=== PATIENT | female | born 1965 | race Caucasian/White ===

== ENCOUNTER 2017-09-02 19:10 | Emergency (ER) | payer MEDICARE ==
[~2017-09-02] VITALS: Ht 160 cm; Wt 63.5 kg
[~2017-09-02 19:10] MED LIST: ALPR1TAB7; HYDR2TAB2; OXYC325T14; ZOLP10TA6
[2017-09-02 23:20] VITALS: BP 112/74
== END 2017-09-02 23:53 | disposition home or self-care (01) ==
LOC: ER 19:10
DX: S01.01XA Laceration without foreign body of scalp, initial encounter (principal); W22.8XXA Striking against or struck by other objects, initial encounter; Y93.89 Activity, other specified; Y92.89 Other specified places as the place of occurrence of the external cause; Y99.8 Other external cause status
CPT/HCPCS: 12002

== ENCOUNTER 2017-09-17 07:55 | Emergency (ER) | payer MEDICARE ==
[~2017-09-17] VITALS: Ht 160 cm; Wt 63.5 kg
[2017-09-17 08:18] VITALS: BP 92/66
== END 2017-09-17 08:38 | disposition home or self-care (01) ==
LOC: ER 07:55
DX: S01.01XD Laceration without foreign body of scalp, subsequent encounter (principal); X58.XXXD Exposure to other specified factors, subsequent encounter; Z79.899 Other long term (current) drug therapy; Z79.891 Long term (current) use of opiate analgesic